=== PATIENT | male | born 1950 | race Caucasian/White ===

== ENCOUNTER 2018-08-06 09:55 | Emergency (ER) | payer OTHER ==
[~2018-08-06] VITALS: Ht 172.7 cm; Wt 78.2 kg
[2018-08-06] MEDS ORDERED: ACETAMINOPHEN-H1 TA2 PO (10:24)
[2018-08-06] MEDS ORDERED: PRILOSEC OTC20 MG PO (10:35)
[2018-08-06] MEDS ORDERED: cholesterol MC (10:36)
[2018-08-06 12:05] VITALS: BP 153/102
== END 2018-08-06 12:05 | disposition home or self-care (01) ==
LOC: ED 09:55
DX: T24.211A Burn of second degree of right thigh, initial encounter (principal); X10.0XXA Contact with hot drinks, initial encounter; Y92.511 Restaurant or cafe as the place of occurrence of the external cause; Z23 Encounter for immunization
CPT/HCPCS: 90715; J1885